=== PATIENT | female | born 1950 | race Caucasian/White ===

== ENCOUNTER → 2017-12-14 | Outpatient (CLI) | payer MEDICARE, MEDICAID ==
[~2017-12-14] MED LIST: AMLO10TA2 PO; CALC1CAP8 PO; CARB200T4 PO; CHOL100012 PO; CHOL500015 PO; HYDR-3342 PO; INDO50CA5 PO; LACT1CAP37 PO; LAMO25TB2 PO; LISI40TA PO; ONDA4TAB10 PO; POTA99TA3 PO; SALM1CAP2 PO; VITA400T6 PO
[2017-12-14 09:08] LABS: ALANINE AMINOTRANSFERASE 27 U/L (12-78); ALBUMIN 4.1 g/dL (3.4-5.0); ANION GAP 7 mmol/L (5-15); CALCIUM 9.4 mg/dL (8.5-10.1); CHLORIDE 107 mmol/L (98-107)
[2017-12-14 09:10] LABS: ALKALINE PHOSPHATASE 114 U/L (45-117); BILIRUBIN,TOTAL 1.2 mg/dL (0.2-1.0)
== END | disposition home or self-care (01) ==
LOC: STAR 07:48
PROVIDERS: ATTEND Obstetrics & Gynecology Female Pelvic Medicine and Reconstructive Surgery
DX: Z01.818 Encounter for other preprocedural examination (principal); N81.3 Complete uterovaginal prolapse; N39.3 Stress incontinence (female) (male)
CPT/HCPCS: 36415; 80053; 93005

== ENCOUNTER 2017-12-18 06:15 | Observation (INO) | payer MEDICARE, MEDICAID ==
[~2017-12-18] VITALS: Ht 158.8 cm; Wt 95.4 kg
[2017-12-18] MEDS ORDERED: EPINEPHRINE 1 MG/ML, 1ML ONE (06:49)
[2017-12-18] MEDS ORDERED: BUPIVACAINE 0.25% ONE (06:49)
[2017-12-18] MEDS ORDERED: BACITRACIN 50,000 UNIT ONE (06:49)
[2017-12-18] MEDS ORDERED: LACTATED RINGERS 1,000 ML IV SCH (06:55)
[2017-12-18 07:17] VITALS: BP 143/92
[2017-12-18] MEDS ORDERED: GABAPENTIN 300 MG CAPSULE PO ONE (07:30)
[2017-12-18] MEDS ORDERED: ACETAMINOPHEN 500 MG TABLET PO ONE (07:30)
[2017-12-18] MEDS ORDERED: LABETALOL 5MG/ML, 20ML IV PRN (08:00)
[2017-12-18] MEDS ORDERED: hydrALAzine 20 MG/ML, 1ML IV PRN (08:00)
[2017-12-18] MEDS ORDERED: DIPHENHYDRAMINE 50 MG/ML, 1ML IVPush PRN (08:00)
[2017-12-18] MEDS ORDERED: FENTANYL PF 100 MCG/2ML ONE ×2 (08:27→09:59)
[2017-12-18] MEDS ORDERED: GLYCOPYRROLATE 0.2MG/1ML, 5ML ONE (09:10)
[2017-12-18] MEDS ORDERED: SUCCINYLCHOLINE 20 MG/ML, 10ML ONE (09:10)
[2017-12-18] MEDS ORDERED: ROCURONIUM 10MG/ML,5ML ONE (09:10)
[2017-12-18] MEDS ORDERED: CEFAZOLIN 1,000 MG ONE (09:10)
[2017-12-18] MEDS ORDERED: NEOSTIGMINE 1 MG/ML, 10ML ONE (09:10)
[2017-12-18] MEDS ORDERED: ONDANSETRON 2MG/ML, 2ML ONE ×2 (09:10→10:15)
[2017-12-18] MEDS ORDERED: DEXAMETHASONE 4 MG/ML, 1ML ONE (09:10)
[2017-12-18] MEDS ORDERED: PROPOFOL 10 MG/ML, 20ML ONE (09:10)
[2017-12-18] MEDS ORDERED: FUROSEMIDE 20 MG/2 ML ONE (09:16)
[2017-12-18] MEDS ORDERED: OXYcodone 5 MG/5 ML ORAL.SOL UDC ONE ×2 (09:59→10:32)
[2017-12-18] MEDS: FENTANYL PF 100 MCG/2ML IV PRN ×2 (10:00→10:13)
[2017-12-18] MEDS: OXYcodone 5 MG/5 ML ORAL.SOL UDC PO PRN ×2 (10:02→10:36)
[2017-12-18] MEDS: ONDANSETRON 2MG/ML, 2ML IV PRN ×2 (10:15→16:26)
[2017-12-18] MEDS ORDERED: HYDROmorphone 2 MG/ML, 1ML ONE ×2 (10:32→11:43)
[2017-12-18] MEDS: HYDROmorphone 1 MG/ML, 1ML IV PRN ×2 (10:35→11:48)
[2017-12-18] MEDS ORDERED: NEOMY/POLYMYXIN B GU IRR. 1 ML IRRIG ONE (13:54)
[2017-12-18] MEDS: OXYcodone/APAP 5/325MG TABLET PO PRN ×2 (14:12→19:31)
[2017-12-18] MEDS ORDERED: OXYcodone/APAP 5/325MG TABLET ONE (14:12)
[2017-12-18] MEDS ORDERED: PROMETHAZINE 25 MG SUPP PR ONE (17:39)
[2017-12-18 19:13] VITALS: BP 106/69
[2017-12-18] MEDS ORDERED: HYDROmorphone 1 MG/ML, 1ML IV PRN (19:30)
[2017-12-18] MEDS ORDERED: OXYcodone/APAP 5/325MG TABLET PO PRN (19:30)
[2017-12-18] MEDS ORDERED: KETOROLAC 30 MG/1 ML IV PRN (19:30)
[2017-12-18] MEDS ORDERED: ONDANSETRON 2MG/ML, 2ML IV PRN (19:30)
[2017-12-19 00:02] VITALS: BP 110/66
[2017-12-19 04:05] VITALS: BP_SYST 102; BP_SYST 111; BP_DIAS 66
[2017-12-19] MEDS: IBUPROFEN 600 MG TABLET PO PRN ×2 (04:25→09:20)
[2017-12-19] MEDS: OXYcodone/APAP 5/325MG TABLET PO PRN (04:25)
[2017-12-19 07:07] VITALS: BP 110/69
== END 2017-12-19 10:30 | disposition home or self-care (01) ==
LOC: OUT 06:15 → 4NOR 19:00 → OUT 21:48 → DCLOUNGE 12-19 10:12
PROVIDERS: ADMIT Obstetrics & Gynecology Female Pelvic Medicine and Reconstructive Surgery; ATTEND Obstetrics & Gynecology Female Pelvic Medicine and Reconstructive Surgery
DX: N39.46 Mixed incontinence (principal); N81.5 Vaginal enterocele; I10 Essential (primary) hypertension; N81.6 Rectocele; R10.2 Pelvic and perineal pain; N99.3 Prolapse of vaginal vault after hysterectomy; Z87.442 Personal history of urinary calculi
CPT/HCPCS: 56810; 57265; 57288; C1771; G0378; J0171; J0330; J0690; J1100; J1170; J1940; J2405; J2704; J2710; J3010; J3490; J7120